=== PATIENT | male | born 1950 | race Caucasian/White ===

== ENCOUNTER 2017-10-22 10:34 | Day surgery (SDC) | payer MEDICARE, OTHER ==
[2017-10-22] VITALS (9 sets, daily range): BP systolic 138–170; BP diastolic 60–100
[~2017-10-22] VITALS: Ht 182.9 cm; Wt 107.8 kg
[2017-10-22] MEDS ORDERED: normal saline 1000ml 1,000 ML IV SCH (11:00)
[2017-10-22] MEDS ORDERED: diphenhydrAMINE 25mg capsule PO PRN (11:00)
[2017-10-22 11:10] LABS: BASOPHILS % (AUTO) 0.3 % (0-1); EOSINOPHILS # (AUTO) 0.2 X10'3 (0-0.9); EOSINOPHILS % (AUTO) 3.2 % (0-6); HEMATOCRIT 48.4 % (42.0-52.0); HEMOGLOBIN 16.9 g/dl (14.0-17.9); LYMPHOCYTES # (AUTO) 1.6 X10'3 (1.1-4.8); LYMPHOCYTES % (AUTO) 29.7 % (21-51); MEAN CORPUSCULAR HEMOGLOBIN 30.7 PG (27.0-31.0); MEAN CORPUSCULAR HGB CONC 34.9 % (33.0-36.5); MEAN CORPUSCULAR VOLUME 87.8 FL (78-98); MEAN PLATELET VOLUME 9.1 FL (7.4-10.4); MONOCYTES # (AUTO) 0.3 X10'3 (0-0.9); MONOCYTES % (AUTO) 6.4 % (2-12); NEUTROPHILS # (AUTO) 3.2 X10'3 (1.8-7.7); NEUTROPHILS % (AUTO) 60.4 % (42-75); PLATELET COUNT 158 X10'3 (140-440); RED BLOOD COUNT 5.52 X10'6 (4.70-6.10); RED CELL DISTRIBUTION WIDTH 13.7 % (11.5-14.5); WHITE BLOOD COUNT 5.3 X10'3 (4.5-11.0)
[2017-10-22 11:20] LABS: ALBUMIN 4.3 G/DL (3.4-5.0); ANION GAP 11 (8-16); BLOOD UREA NITROGEN 12 MG/DL (7-18); BUN/CREATININE RATIO 11.9 (5.4-32.0); CALCIUM 9.1 MG/DL (8.5-10.1); CHLORIDE 104 MMOL/L (99-107); CREATININE 1.01 MG/DL (0.60-1.10); GLUCOSE 162 MG/DL (70-104); PROTHROMBIN TIME 10.2 SECONDS (9.0-12.0); SODIUM 140 MMOL/L (135-145); TOTAL CARBON DIOXIDE 25.5 MMOL/L (24-32); eGFR 74 ML/MIN
[2017-10-22] MEDS ORDERED: METO-384 PO (11:51)
[2017-10-22] MEDS ORDERED: METF10002 PO (11:52)
[2017-10-22] MEDS ORDERED: ASPI81TA52 PO (11:53)
[2017-10-22] MEDS ORDERED: IBUP-1984 PO (11:54)
[2017-10-22] MEDS ORDERED: PANT40TA4 PO (11:55)
[2017-10-22] MEDS ORDERED: ROSU20TA PO (11:55)
[2017-10-22] MEDS ORDERED: RIVA20TA PO (11:56)
[2017-10-22] MEDS ORDERED: LIDOcaine 1% 30ml vial 30 ML ONE (13:35)
[2017-10-22] MEDS ORDERED: iohexol 350MG/ML 100ml bottle IV ONE ×2 (13:36→14:16)
[2017-10-22] MEDS ORDERED: iohexol 350 MG/ML 50ML vial IV ONE (13:36)
[2017-10-22] MEDS ORDERED: fentaNYL/PF 50MCG/1 ML 2ML syringe ONE (13:45)
[2017-10-22] MEDS ORDERED: midazolam 2 mg/2 ml injection ONE ×2 (13:45→14:12)
[2017-10-22] MEDS ORDERED: heparin 1,000unit/ml 10ml vial 10 ML ONE (14:00)
[2017-10-22] MEDS ORDERED: nitroGLYCERIN-Tridil 50MG/D5W 250 ML IV ONE (14:37)
[2017-10-22] MEDS ORDERED: clopidogrel 300mg tablet ONE (14:44)
[2017-10-22] MEDS ORDERED: SITA50TA PO (17:38)
== END 2017-10-22 18:25 | disposition home or self-care (01) ==
LOC: SSTAY O 10:34
PROVIDERS: ATTEND Internal Medicine Cardiovascular Disease
DX: I25.118 Atherosclerotic heart disease of native coronary artery with other forms of angina pectoris (principal); I25.2 Old myocardial infarction; I48.91 Unspecified atrial fibrillation; E78.5 Hyperlipidemia, unspecified; E11.9 Type 2 diabetes mellitus without complications; M19.90 Unspecified osteoarthritis, unspecified site; G47.33 Obstructive sleep apnea (adult) (pediatric); K21.9 Gastro-esophageal reflux disease without esophagitis; L40.9 Psoriasis, unspecified; Z86.74 Personal history of sudden cardiac arrest; Z95.5 Presence of coronary angioplasty implant and graft; Z91.048 Other nonmedicinal substance allergy status; Z72.89 Other problems related to lifestyle; Z79.1 Long term (current) use of non-steroidal anti-inflammatories (NSAID); Z79.82 Long term (current) use of aspirin; Z79.84 Long term (current) use of oral hypoglycemic drugs; Z98.890 Other specified postprocedural states
CPT/HCPCS: 36415; 80048; 82948; 85025; 85610; 93458; 99152; 99153; A6257; C1725; C1760; C1769; C1874; C1894; C9600; C9601; J1644; J2250; J3010; J3490; J7030; Q0163; Q9967; A4620

== ENCOUNTER 2020-07-15 10:27 | Day surgery (SDC) | payer MEDICARE, MEDICAID ==
[2020-07-15] VITALS (9 sets, daily range): BP systolic 140–164; BP diastolic 84–111
[~2020-07-15] VITALS: Ht 182.9 cm; Wt 99.8 kg
[~2020-07-15 10:27] MED LIST: ASPI81TA52 PO; IBUP-1984 PO; METF-438 PO; METO-384 PO; PANT40TA54 PO; RIVA20TA PO; ROSU20TA2 PO; SITA50TA PO
[2020-07-15] MEDS ORDERED: diphenhydrAMINE 25mg capsule PO PRN (10:45)
[2020-07-15] MEDS ORDERED: normal saline 1,000 ML IV SCH (10:45)
[2020-07-15] MEDS ORDERED: CLOP75TA15 PO (11:04)
[2020-07-15] MEDS ORDERED: CRAN400C PO (11:04)
[2020-07-15] MEDS ORDERED: LOSA25TA96 PO (11:04)
[2020-07-15] MEDS ORDERED: [UNRECOGNIZED DRUG - CODE] PO (11:04)
[2020-07-15] MEDS ORDERED: CELE200C PO (11:04)
[2020-07-15 11:22] LABS: BASOPHILS % (AUTO) 0.4 % (0-1); EOSINOPHILS # (AUTO) 0.2 X10'3 (0-0.9); EOSINOPHILS % (AUTO) 2.7 % (0-6); HEMATOCRIT 41.7 % (42.0-52.0); HEMOGLOBIN 13.9 g/dl (14.0-17.9); LYMPHOCYTES # (AUTO) 1.7 X10'3 (1.1-4.8); LYMPHOCYTES % (AUTO) 23.4 % (21-51); MEAN CORPUSCULAR HEMOGLOBIN 29.5 PG (27.0-31.0); MEAN CORPUSCULAR HGB CONC 33.3 g/dL (33.0-36.5); MEAN CORPUSCULAR VOLUME 88.8 FL (78-98); MEAN PLATELET VOLUME 9.4 FL (7.4-10.4); MONOCYTES # (AUTO) 0.5 X10'3 (0-0.9); MONOCYTES % (AUTO) 7.6 % (2-12); NEUTROPHILS # (AUTO) 4.7 X10'3 (1.8-7.7); NEUTROPHILS % (AUTO) 65.9 % (42-75); PLATELET COUNT 154 X10'3 (140-440); RED CELL DISTRIBUTION WIDTH 13.8 % (11.5-14.5); WHITE BLOOD COUNT 7.1 X10'3 (4.5-11.0)
[2020-07-15 11:33] LABS: ALBUMIN 3.9 G/DL (3.4-5.0); ANION GAP 8 (8-16); BLOOD UREA NITROGEN 17 MG/DL (7-18); BUN/CREATININE RATIO 17.2 (5.4-32.0); CALCIUM 9.2 MG/DL (8.5-10.1); CHLORIDE 109 MMOL/L (99-107); CREATININE 0.99 MG/DL (0.60-1.10); GLUCOSE 141 MG/DL (70-104); MAGNESIUM 1.4 MG/DL (1.5-2.4); POTASSIUM 4.5 MMOL/L (3.5-5.1); SODIUM 140 MMOL/L (135-145); eGFR 75 ML/MIN
[2020-07-15] MEDS ORDERED: LIDOcaine 1% (10mg/ml)w/preservative injection 20ml MDV ONE (12:59)
[2020-07-15] MEDS ORDERED: heparin 1,000unit/ml 10ml vial 10 ML ONE (12:59)
[2020-07-15] MEDS ORDERED: midazolam 2 mg/2 ml injection ONE ×3 (12:59→14:32)
[2020-07-15] MEDS ORDERED: fentaNYL/PF 50MCG/1 ML 2ML syringe ONE ×2 (12:59→14:32)
[2020-07-15] MEDS ORDERED: iohexol 350 MG/ML 50ML vial IV ONE ×2 (13:00→14:42)
[2020-07-15] MEDS ORDERED: iohexol 350MG/ML 100ml bottle IV ONE ×2 (13:00→14:13)
[2020-07-15] MEDS ORDERED: nitroGLYCERIN-Tridil 50MG/D5W 250 ML IV ONE (14:24)
[2020-07-15] MEDS ORDERED: hydrALAZINE 20mg/ml inj. IV ONE (14:30)
[2020-07-15] MEDS ORDERED: metoprolol tartrate 1mg/ml inj IV ONE (14:35)
[2020-07-15] MEDS ORDERED: clopidogrel 300mg tablet ONE (15:04)
[2020-07-15] MEDS ORDERED: HYDROcodone/acetaminophen 5mg/325mg tablet PO PRN (15:35)
[2020-07-15] MEDS ORDERED: ondansetron/PF 4mg/2ml inj IV PRN (15:35)
[2020-07-15] MEDS ORDERED: proCHLORperazine 10 MG/2 ml inj IV PRN (15:35)
[2020-07-15] MEDS ORDERED: normal saline 1000ml 1,000 ML IV ONE (15:35)
[2020-07-15] MEDS ORDERED: HYDROcodone/acetaminophen 10/325mg tab PO PRN (15:35)
[2020-07-15] MEDS ORDERED: pantoprazole 40mg Tablet.DR PO ONE (16:00)
[2020-07-15] MEDS ORDERED: mag hydrox/Alum hydrox/simeth 30ml oral suspension PO ONE (16:00)
== END 2020-07-15 18:30 | disposition home or self-care (01) ==
LOC: SSTAY O 10:27
PROVIDERS: ATTEND Internal Medicine Cardiovascular Disease
DX: I25.118 Atherosclerotic heart disease of native coronary artery with other forms of angina pectoris (principal); E78.5 Hyperlipidemia, unspecified; E11.9 Type 2 diabetes mellitus without complications; M19.90 Unspecified osteoarthritis, unspecified site; G47.30 Sleep apnea, unspecified; K21.9 Gastro-esophageal reflux disease without esophagitis; I48.0 Paroxysmal atrial fibrillation; I42.8 Other cardiomyopathies; Z79.84 Long term (current) use of oral hypoglycemic drugs; Z79.899 Other long term (current) drug therapy; Z79.01 Long term (current) use of anticoagulants; Z91.09 Other allergy status, other than to drugs and biological substances; Z95.5 Presence of coronary angioplasty implant and graft
CPT/HCPCS: 36415; 80048; 82948; 83735; 85025; 85610; 92978; 93005; 93458; 99152; 99153; C1725; C1751; C1753; C1760; C1769; C1874; C1894; C9600; C9601; J0360; J1644; J2001; J2250; J3010; J7030; Q0163; Q9967; A4620; A6258; J3490

== ENCOUNTER 2020-07-25 12:26 | Outpatient (CLI) | payer MEDICARE, MEDICAID ==
[~2020-07-25 12:26] MED LIST changes: -ASPI81TA52 PO; +CELE200C PO; +CLOP75TA15 PO; +CRAN400C PO; -IBUP-1984 PO; +LOSA25TA96 PO; +[UNRECOGNIZED DRUG - CODE] PO
== END 2020-07-25 23:59 | disposition home or self-care (01) ==
LOC: VAS 12:26
PROVIDERS: ATTEND Internal Medicine Cardiovascular Disease
DX: M79.661 Pain in right lower leg (principal)
CPT/HCPCS: 93926